=== PATIENT | female | born 1950 | race Caucasian/White ===

== ENCOUNTER 2019-06-15 11:17 | Inpatient (IN) | payer MEDICARE ==
[~2019-06-15] VITALS: Ht 162.6 cm; Wt 113.5 kg
[2019-06-15 11:32] VITALS: BP 118/74
[2019-06-15] MEDS ORDERED: GLIPIZIDE 10 MG10 MG PO (11:36)
[2019-06-15] MEDS ORDERED: METFORMIN HCL500 M3 PO (11:36)
[2019-06-15] MEDS ORDERED: LIPITOR 20 MG T20 M1 PO (11:36)
[2019-06-15] MEDS ORDERED: ATENOLOL 100MG100 MG PO (11:36)
[2019-06-15] MEDS ORDERED: HYDROCHLOROTHIA25 M2 PO (11:36)
[2019-06-15] MEDS ORDERED: BRIMONIDINE TART5 ML OP (11:37)
[2019-06-15] MEDS ORDERED: ACTOS 30 MG TAB30 MG PO (11:37)
[2019-06-15] MEDS ORDERED: LATANOPROST 0.2.5 ML OPHTHALMIC (11:37)
[2019-06-15] MEDS ORDERED: ZESTRIL20 MG PO (11:38)
[2019-06-15] MEDS ORDERED: ASA81BEC PO (11:38)
[2019-06-15] MEDS ORDERED: TIMOLOL MALEATE5 M2 OPHTHALMIC (11:38)
[2019-06-15] MEDS ORDERED: ALLEGRA ALLERG180 MG PO (11:38)
[2019-06-15] MEDS ORDERED: FENOFIBRATE150 MG PO (11:38)
[2019-06-15 12:40] LABS: ABSOLUTE BASOPHILS 0.1 thou/uL (0.0-0.2); ABSOLUTE EOSINOPHILS 0.2 thou/uL (0.0-0.7); ABSOLUTE LYMPHOCYTES 1.3 thou/uL (0.8-5.3); ABSOLUTE MONOCYTES 0.7 thou/uL (0.0-1.2); ABSOLUTE NEUTROPHILS 5.8 thou/uL (1.6-8.1); BASOPHILS 0.8 %; EOSINOPHILS 2.4 %; HEMATOCRIT 36.2 % (37.0-47.0); LYMPHOCYTES 16.4 %; MCH 29.9 pg (26.0-34.0); MCV 90.5 fL (80.0-100.0); MONOCYTES 9.1 %; MPV 10.9 fl. (7.2-11.1); NUCLEATED RBCS 0 /100WBC; PLATELET COUNT* 292 thou/uL (150-400); POLYS 71.3 %; RDW-CV 14.1 % (10.5-14.5); WBC 8.1 thou/uL (4.0-11.0)
[2019-06-15 12:51] LABS: CALCIUM 10.2 mg/dL (8.5-10.1); CREATININE 1.5 mg/dL (0.6-1.3); POTASSIUM 4.6 mmol/L (3.5-5.1)
[2019-06-15 13:02] LABS: ALBUMIN 3.5 g/dL (3.4-5.0); TOTAL BILIRUBIN 0.8 mg/dL (<0.1-1.0)
[2019-06-15 13:43] LABS: URINE BILIRUBIN NEGATIVE (Negative); URINE BLOOD NEGATIVE (Negative); URINE CLARITY CLEAR; URINE COLOR YELLOW; URINE GLUCOSE-RANDOM NEGATIVE (Negative); URINE KETONES NEGATIVE (Negative); URINE LEUKOCYTES-REFLEX NEGATIVE (Negative); URINE NITRITE-REFLEX NEGATIVE (Negative); URINE PROTEIN NEGATIVE (Negative); URINE UROBILINOGEN 0.2 E.U./dl (0.2-1.0)
[2019-06-15 14:40] LABS: APTT 23.4 Seconds (25.0-31.3); INR 1.1; PROTIME 11.5 Seconds (9.20-11.50)
--- NOTE | 2019-06-15 15:33 | EKG ---
[place] [address] ELECTROCARDIOGRAM REPORT Name: KYLE ESCOBAR Room: [place] [address] 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1950 Requested By: Aislinn Proctor Order Number: [id number] MD: Sawyer Arriaga Measurements Intervals [place] Rate: 78 P: IN: QRS: 44 QRSD: 116 T: 151 QT: 436 QTc: 497 Interpretive Statements Atrial flutter with predominant 4:1 AV block Nonspecific intraventricular conduction delay Repol abnrm suggests ischemia, anterolateral Compared to ECG 06/23/2008 06:31:16 Intraventricular conduction delay now present Possible ischemia now present ST (T wave) deviation now present Sinus rhythm no longer present Electronically Signed On 06-15-2019 15:31:56 GARNETTER by Sawyer Arriaga [email or web address] <ELECTRONICALLY SIGNED> By: Sawyer Arriaga MD, [facility] 06/15/19 1531 1217 1217 Sawyer Arriaga MD, [facility] /EPI
[2019-06-15 17:25] VITALS: BP 124/69
[2019-06-15 20:00] VITALS: BP 149/78
[2019-06-15 23:24] LABS: ABSOLUTE EOSINOPHILS 0.2 thou/uL (0.0-0.7); ABSOLUTE LYMPHOCYTES 1.5 thou/uL (0.8-5.3); ABSOLUTE MONOCYTES 0.6 thou/uL (0.0-1.2); ABSOLUTE NEUTROPHILS 3.6 thou/uL (1.6-8.1); BASOPHILS 0.8 %; EOSINOPHILS 2.6 %; HEMATOCRIT 30.5 % (37.0-47.0); HEMOGLOBIN 10.2 gm/dL (12.0-15.0); MCH 30.1 pg (26.0-34.0); MCHC 33.5 g/dL (28.0-37.0); MCV 89.7 fL (80.0-100.0); MONOCYTES 9.6 %; MPV 10.4 fl. (7.2-11.1); NUCLEATED RBCS 0 /100WBC; RDW-CV 14.2 % (10.5-14.5); WBC 5.9 thou/uL (4.0-11.0)
[2019-06-15 23:26] LABS: PLATELET COUNT* 207 thou/uL (150-400)
[2019-06-15 23:31] LABS: CALCIUM 8.3 mg/dL (8.5-10.1); CREATININE 1.4 mg/dL (0.6-1.3); POTASSIUM 3.8 mmol/L (3.5-5.1)
[2019-06-15 23:36] LABS: ALBUMIN 2.8 g/dL (3.4-5.0); TOTAL BILIRUBIN 0.6 mg/dL (<0.1-1.0); TOTAL PROTEIN 5.9 g/dL (6.4-8.2)
[2019-06-16] VITALS (7 sets, daily range): BP systolic 108–137; BP diastolic 29–71
[2019-06-16 00:52] LABS: INFLUENZA A ANTIGEN Negative (Negative); INFLUENZA B ANTIGEN Negative (Negative)
[2019-06-16 11:25] LABS: ABSOLUTE EOSINOPHILS 0.1 thou/uL (0.0-0.7); ABSOLUTE MONOCYTES 0.4 thou/uL (0.0-1.2); ABSOLUTE NEUTROPHILS 3.4 thou/uL (1.6-8.1); EOSINOPHILS 2.6 %; HEMOGLOBIN 10.1 gm/dL (12.0-15.0); LYMPHOCYTES 19.7 %; MCH 30.6 pg (26.0-34.0); MCHC 33.7 g/dL (28.0-37.0); MCV 90.6 fL (80.0-100.0); MONOCYTES 8.1 %; MPV 9.7 fl. (7.2-11.1); NUCLEATED RBCS 0 /100WBC; PLATELET COUNT* 200 thou/uL (150-400); POLYS 68.6 %; RBC 3.31 mil/uL (4.20-5.00); WBC 4.9 thou/uL (4.0-11.0)
[2019-06-16 11:44] LABS: CALCIUM 8.9 mg/dL (8.5-10.1); CREATININE 1.4 mg/dL (0.6-1.3); MAGNESIUM 1.8 mg/dL (1.8-2.4); POTASSIUM 4.3 mmol/L (3.5-5.1)
--- NOTE | 2019-06-16 15:50 | 2DMMODE ---
[place] [address] 2 D/M-MODE ECHOCARDIOGRAM Name: KYLE ESCOBAR Room: [address] IN [facility]#: [id number] Admission: 06/15/19 Attend Phys: Shawn Mariee Discharge: Date of : 50 Date of Service: 06/16/19 1549 Report #: [id number] THIS REPORT FOR: cc: Uvaldo Winter John E. DO Liston, Michael J. MD [facility] ~ APPROVED REPORT Study performed: 06/16/2019 10:57:32 EXAM: Comprehensive 2D, Doppler, and color-flow Echocardiogram Patient Location: In-Patient Room #: [facility] Status: routine BSA: 2.15 HR: 78 bpm BP: 111/66 mmHg Rhythm: NSR Other Information Study Quality: Good Indications Dyspnea 2D Dimensions IVSd: 11.94 (7-11mm) LVOT Diam: 19.62 (18-24mm) LVDd: 47.40 mm PWd: 10.01 (7-11mm) Ascending Ao: 34.83 (22-36mm) LVDs: 27.91 (25-40mm) Aortic Root: 30.48 mm Volumes Left Atrial Volume (Systole) LA ESV Index: 34.30 mL/m2 Aortic Valve AoV Peak Diomedes.: 1.41 m/s AO Peak Gr.: 7.97 mmHg LVOT Max P.62 mmHg AO Mean Gr.: 4.57 mmHg LVOT Mean P.54 mmHg LVOT Max V: 1.19 m/s AO V2 VTI: 26.50 cm LVOT Mean V: 0.73 m/s YAQUELIN (VTI): 2.52 cm2 LVOT V1 VTI: 22.07 [place] [address] 2 D/M-MODE ECHOCARDIOGRAM Name: KYLE ESCOBAR Room: [address] IN [facility]#: [id number] Admission: 06/15/19 Attend Phys: Shawn Mariee Discharge: Date of : 50 Date of Service: 06/16/19 1549 Report #: [id number] Mitral Valve E/A Ratio: 1.53 MV Decel. Time: 136.75 ms MV E Max Diomedes.: 0.90 m/s MV PHT: 39.66 ms MVA (PHT): 5.55 cm2 TDI E/Lateral E': 5.00 E/Medial E': 6.43 Medial E' Diomedes.: 0.14 m/s Lateral E' Diomedes.: 0.18 m/s Pulmonary Valve PV Peak Diomedes.: 0.83 m/s PV Peak Gr.: 2.74 mmHg Tricuspid Valve RAP Estimate: 5.00 mmHg TR Peak Gr.: 17.88 mmHg RVSP: 22.00 mmHg PA Pressure: 22.00 mmHg Left Ventricle The left ventricle is normal size. There is normal LV segmental wall motion. There is normal left ventricular wall thickness. Left ventricular systolic function is normal. LVEF is 60-65%. The left ventricular diastolic function is normal. Right Ventricle The right ventricle is normal size. The right ventricular systolic function is normal. Atria Left atrium is mildly dilated. Right atrium is mildly dilated. Aortic Valve Mild aortic valve sclerosis. No aortic regurgitation is present. There is no aortic valvular stenosis. Mitral Valve There is mitral annular calcification. There is no mitral valve regurgitation noted. No evidence of mitral valve stenosis. Tricuspid Valve The tricuspid valve is normal in structure. Mild tricuspid regurgitation. [place] [address] 2 D/M-MODE ECHOCARDIOGRAM Name: CAYLAFAITHKYLE D Room: [address]#: [id number] Admission: 06/15/19 Attend Phys: Shawn Mariee Discharge: Date of : 50 Date of Service: 06/16/19 1549 Report #: [id number] Pulmonic Valve The pulmonary valve is normal in structure. Mild pulmonic regurgitation. Great Vessels The aortic root is normal in size. IVC is normal in size and collapses >50% with inspiration. Pericardium There is no pericardial effusion. <Conclusion> The left ventricle is normal size. There is normal left ventricular wall thickness. Left ventricular systolic function is normal. LVEF is 60-65%. The left ventricular diastolic function is normal. Left atrium is mildly dilated. Right atrium is mildly dilated. Mild tricuspid regurgitation. No pulmonary hypertension. IVC is normal in size and collapses >50% with inspiration. <ELECTRONICALLY SIGNED> By: Tim Lechuga MD, FACC 06/16/19 1549 1549 1549 Tim Lechuga MD, FACC /INF
[2019-06-17 07:50] VITALS: BP 142/67
[2019-06-17 09:49] LABS: CHOLESTEROL 127 mg/dL (<200); HDL CHOLESTEROL 41 mg/dL (>40); LDL CHOLESTEROL 60 mg/dL (<100); SERUM ASSESSMENT Clear; TC:HDL 3.1 Ratio (Not establshd); TRIGLYCERIDE 131 mg/dL (<150); VLDL 26 mg/dL (<40)
--- NOTE | 2019-06-17 10:47 | EKG ---
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1950 Requested By: Marce Warner Order Number: [id number] Reading MD: Sawyer Arriaga Measurements Intervals [place] Rate: 70 P: ME: QRS: -1 QRSD: 135 T: 116 QT: 484 QTc: 523 Interpretive Statements Atrial flutter with predominant 4:1 AV block Nonspecific intraventricular conduction delay Abnormal T, consider ischemia, lateral leads Compared to ECG 06/15/2019 12:17:42 Possible ischemia still present Electronically Signed On 06-17-2019 10:46:48 [employer] by Sawyer Arriaga [email or web address] <ELECTRONICALLY SIGNED> By: Sawyer Arriaga MD, [facility] 06/17/19 1046 4 08 Sawyer Arriaga MD, [facility] /EPI
[2019-06-17 12:00] VITALS: BP 116/68
[2019-06-17] MEDS ORDERED: ELIQUIS5 MG PO (12:21)
[2019-06-17] MEDS ORDERED: AMIODARONE HCL400 MG PO (12:21)
[2019-06-17] MEDS ORDERED: ALLEGRA ALLERG180 MG PO (12:24)
== END 2019-06-17 15:30 | disposition home health service (06) | DRG 193 ==
LOC: M.ERS 11:17 → M.2W 14:37 → M.TBA-ER 14:37 → M.2W 17:41
PROVIDERS: Nurse Practitioner Family; Registered Nurse; ADMIT Internal Medicine
DX: J10.1 Influenza due to other identified influenza virus with other respiratory manifestations (principal); I50.33 Acute on chronic diastolic (congestive) heart failure; I48.92 Unspecified atrial flutter; Z68.41 Body mass index [BMI] 40.0-44.9, adult; I11.0 Hypertensive heart disease with heart failure; I25.10 Atherosclerotic heart disease of native coronary artery without angina pectoris; E11.9 Type 2 diabetes mellitus without complications; E78.5 Hyperlipidemia, unspecified; R06.00 Dyspnea, unspecified; E66.01 Morbid (severe) obesity due to excess calories; Z96.653 Presence of artificial knee joint, bilateral; Z95.1 Presence of aortocoronary bypass graft; Z88.2 Allergy status to sulfonamides; Z88.8 Allergy status to other drugs, medicaments and biological substances; Z88.1 Allergy status to other antibiotic agents; Z88.0 Allergy status to penicillin; Z91.013 Allergy to seafood; Z90.710 Acquired absence of both cervix and uterus; Z79.84 Long term (current) use of oral hypoglycemic drugs; Z79.82 Long term (current) use of aspirin; Z79.899 Other long term (current) drug therapy; Z91.048 Other nonmedicinal substance allergy status; Z82.49 Family history of ischemic heart disease and other diseases of the circulatory system; Z23 Encounter for immunization; Z87.01 Personal history of pneumonia (recurrent)

== ENCOUNTER → 2019-12-24 | Outpatient (CLI) | payer MEDICARE ==
[~2019-12-24] MED LIST: ACTOS 30 MG TAB30 MG PO; ALLEGRA ALLERG180 MG PO; AMIODARONE HCL400 MG PO; ASA81BEC PO; ATENOLOL 100MG100 MG PO; BRIMONIDINE TART5 ML OP; ELIQUIS5 MG PO; FENOFIBRATE150 MG PO; GLIPIZIDE 10 MG10 MG PO; HYDROCHLOROTHIA25 M2 PO; LATANOPROST 0.2.5 ML OPHTHALMIC; LIPITOR 20 MG T20 M1 PO; METFORMIN HCL500 M3 PO; TIMOLOL MALEATE5 M2 OPHTHALMIC; ZESTRIL20 MG PO
[2019-12-24 09:22] LABS: ALBUMIN 3.7 g/dL (3.4-5.0); DIRECT BILIRUBIN 0.1 mg/dL (<0.1-0.3); TOTAL BILIRUBIN 0.4 mg/dL (<0.1-1.0); TOTAL PROTEIN 6.8 g/dL (6.4-8.2)
== END ==
LOC: M.LAB 08:32
PROVIDERS: ATTEND Internal Medicine Cardiovascular Disease
DX: Z79.899 Other long term (current) drug therapy (principal); I70.0 Atherosclerosis of aorta; M47.9 Spondylosis, unspecified

== ENCOUNTER → 2020-06-27 | Outpatient (CLI) | payer MEDICARE | LOC: M.ULTRA 05-19 15:56 | PROVIDERS: ATTEND Registered Nurse | DX: I65.23 Occlusion and stenosis of bilateral carotid arteries (principal); I73.9 Peripheral vascular disease, unspecified ==

== ENCOUNTER → 2020-07-11 | Outpatient (CLI) | payer MEDICARE ==
[2020-07-11 11:01] LABS: ALBUMIN 3.7 g/dL (3.4-5.0); DIRECT BILIRUBIN 0.3 mg/dL (<0.1-0.3); TOTAL BILIRUBIN 1.5 mg/dL (<0.1-1.0); TOTAL PROTEIN 7.2 g/dL (6.4-8.2)
== END ==
LOC: M.RAD 09:31
PROVIDERS: ATTEND Internal Medicine Cardiovascular Disease
DX: I48.92 Unspecified atrial flutter (principal); I10 Essential (primary) hypertension; Z79.899 Other long term (current) drug therapy; M47.814 Spondylosis without myelopathy or radiculopathy, thoracic region

== ENCOUNTER → 2021-01-05 | Outpatient (CLI) | payer MEDICARE ==
[2021-01-05 11:02] LABS: ALBUMIN 3.6 g/dL (3.4-5.0); DIRECT BILIRUBIN 0.2 mg/dL (<0.1-0.3); TOTAL BILIRUBIN 0.9 mg/dL (<0.1-1.0); TOTAL PROTEIN 7.1 g/dL (6.4-8.2)
== END ==
LOC: M.LAB 10:26
PROVIDERS: ATTEND Internal Medicine Cardiovascular Disease
DX: I25.10 Atherosclerotic heart disease of native coronary artery without angina pectoris (principal); I48.92 Unspecified atrial flutter; Z79.899 Other long term (current) drug therapy